=== PATIENT | female | born 1950 | race Caucasian/White ===

== ENCOUNTER 2017-10-17 10:04 | Emergency (ER) | payer MEDICARE, BC ==
[~2017-10-17] VITALS: Ht 154.9 cm; Wt 75.8 kg
[~2017-10-17 10:04] MED LIST: ALEN70 PO; AMLO5 PO; ATOR40TA PO; CARV6.25 PO; CHOL10002 PO; COMPAZINE10 MG PO; Coreg12.5 MG PO; FURO20 PO; GLIM2 PO; INSUASPI SC; INSULANPEN SC; INSULANPEN SQ; LOSA25 PO; Norco 5-325 Ta1 EACH PO; Novolog Fl100 UNIT/1 SC; OCUVITE EYE +1 EACH PO; PANT40 PO; PROC10 PO; SPIR25 PO; SUMA25 PO
[2017-10-17] MEDS ORDERED: Norco 5-325 Ta1 EACH PO (11:19)
[2017-10-17] MEDS ORDERED: ONDA4ODT MM (11:19)
== END 2017-10-17 11:27 | disposition home or self-care (01) ==
LOC: ER 10:04
DX: S63.502A Unspecified sprain of left wrist, initial encounter (principal); E11.9 Type 2 diabetes mellitus without complications; Z79.899 Other long term (current) drug therapy; Z79.4 Long term (current) use of insulin; W10.9XXA Fall (on) (from) unspecified stairs and steps, initial encounter
CPT/HCPCS: 29125; 73130; 99283